=== PATIENT | male | born 1970 | race Caucasian/White ===

== ENCOUNTER 2019-04-02 06:08 | Inpatient (IN) | payer OTHER ==
[~2019-04-02] VITALS: Ht 180.3 cm; Wt 102.9 kg
--- NOTE | 2019-04-02 06:20 | NUR ---
PT ARRIVES BY AMBULANCE FOR ETOH INTOXICATION AND CHEST PAIN. PER PT, PT DRINKING 1/2 GALLON/DAY X 5 DAYS. EN ROUTE TO [facility] ED, IV ACCESS ESTABLISHED OBTAINED BY EMS. IV FLUIDS INITIATED. FSBS FOUND TO BE 158. PT REPORTS LAST DRINK 25 MINUTES AGO. PT VSS. PT IN GOWN IN [facility]. EKG DONE AT BS. AWAITING ERP AT THIS TIME. PT HAS CALL LIGHT WITHIN REACH.
[2019-04-02] MEDS ORDERED: PLEASE ENTER ALLERGIES MC SCH (07:00)
[2019-04-02] MEDS ORDERED: KETOROLAC 30 MG/1 ML IVPush ONE (07:00)
[2019-04-02] MEDS ORDERED: FAMOTIDINE 20 MG/2 ML IVPush ONE (07:00)
[2019-04-02] MEDS ORDERED: MAALOX/HYOSCYAMINE/LIDOCAINE 45 ML BTL PO ONE (07:00)
[2019-04-02] MEDS ORDERED: ONDANSETRON 2MG/ML, 2ML IVPush ONE (07:00)
--- NOTE | 2019-04-02 07:00 | NUR ---
RECIEVED REPORT FROM JASS CAMPOS
[2019-04-02 07:03] LABS: BASOPHILS # (AUTO) 0.03 x10^3/uL (0-0.1); BASOPHILS % (AUTO) 1 % (0-1); EOSINOPHILS # (AUTO) 0.07 x10^3/uL (0-0.4); EOSINOPHILS % (AUTO) 1 % (1-7); LYMPHOCYTES # (AUTO) 2.34 x10^3/uL (1-3.4); LYMPHOCYTES % (AUTO) 41 % (22-44); MD NO; MEAN CORPUSCULAR HEMOGLOBIN 30.4 pg (27.5-34.5); MEAN CORPUSCULAR HGB CONC 33.4 g/dL (33.2-36.2); MEAN PLATELET VOLUME 7.1 fL (7.4-10.4); MONOCYTES # (AUTO) 0.58 x10^3/uL (0.2-0.8); MONOCYTES % (AUTO) 10 % (2-9); NEUTROPHILS # (AUTO) 2.65 x10^3/uL (1.8-6.8); NEUTROPHILS % (AUTO) 47 % (42-75); PLATELET COUNT 194 x10^3/uL (130-400); RED BLOOD COUNT 5.63 x10^6/uL (4.38-5.82); RED CELL DISTRIBUTION WIDTH 14.6 % (9.4-14.8)
[2019-04-02] MEDS ORDERED: ONDANSETRON 2MG/ML, 2ML ONE (07:04)
[2019-04-02] MEDS ORDERED: MAALOX/HYOSCYAMINE/LIDOCAINE 45 ML BTL ONE (07:04)
[2019-04-02] MEDS ORDERED: KETOROLAC 30 MG/1 ML ONE (07:04)
[2019-04-02] MEDS ORDERED: FAMOTIDINE 20 MG/2 ML ONE (07:05)
[2019-04-02 07:12] LABS: INTERNATIONAL NORMALIZED RATIO 1.08 (0.93-1.1); PROTHROMBIN TIME 11.3 Seconds (9.6-11.5)
[2019-04-02 07:13] LABS: ALANINE AMINOTRANSFERASE 114 U/L (12-78); ALBUMIN 4.2 g/dL (3.4-5.0); ANION GAP 12 mmol/L (5-15); CALCIUM 8.3 mg/dL (8.5-10.1); CHLORIDE 99 mmol/L (98-107); CREATININE 0.93 mg/dL (0.7-1.3)
[2019-04-02 07:17] LABS: ALKALINE PHOSPHATASE 80 U/L (45-117); BILIRUBIN,TOTAL 0.6 mg/dL (0.2-1.0); TOTAL PROTEIN 8.2 g/dL (6.4-8.2); TROPONIN I < 0.015 ng/mL (0.000-0.045)
--- NOTE | 2019-04-02 07:17 | NUR ---
PT MEDICATED PER EMAR. PT CALM, A+OX4. BLANKET PROVIDED. PT ON LEAD GENERATOR.
[2019-04-02] MEDS ORDERED: MAGNESIUM SULFATE 1 GM/2 ML IVPush ONE (07:30)
[2019-04-02] MEDS ORDERED: POTASSIUM CHLORIDE 40 MEQ in SODIUM CHLORIDE 0.9% 500 ML IV ONE (07:30)
[2019-04-02] MEDS ORDERED: MAGNESIUM SULFATE 1 GM in SODIUM CHLORIDE 0.9% 50 ML IV ONE (07:30)
--- NOTE | 2019-04-02 07:38 | NUR ---
PT O2 SATS IN THE HIGH 80'S ON 2L. NASAL CANNULA INCREASED TO 4L AND O2 SATS INCREASED TO THE LOW 90'S.
--- NOTE | 2019-04-02 08:03 | NUR ---
pt to ct
[2019-04-02] MEDS ORDERED: OMNIPAQUE 350 MG/ML, 100ML BOTTLE ONE (08:18)
--- NOTE | 2019-04-02 08:57 | NUR ---
BEDSIDE REPORT FROM JASS JOSHI. ASSUMED CARE OF PATIENT AT THIS TIME.
[2019-04-02] MEDS ORDERED: FOLIC ACID 5 MG/ML IM ONE (09:00)
[2019-04-02] MEDS ORDERED: GUAIFENESIN/DM 200-20MG, 10ML UDC PO PRN (09:00)
[2019-04-02] MEDS ORDERED: NITROGLYCERIN 0.4 MG BOTTLE (25 TABS) SL PRN (09:00)
[2019-04-02] MEDS ORDERED: LORazepam 2 MG/ML, 1ML IV PRN (09:00)
[2019-04-02] MEDS ORDERED: LORazepam 1MG TABLET PO PRN ×4 (09:00)
[2019-04-02] MEDS ORDERED: DOCUSATE 100 MG CAPSULE PO PRN (09:00)
[2019-04-02] MEDS ORDERED: LIDODERM 5% PATCH TD PRN (09:00)
[2019-04-02] MEDS ORDERED: hydrALAzine 20 MG/ML, 1ML IVPush PRN (09:00)
[2019-04-02] MEDS ORDERED: PANTOPROZOLE 40MG TABLET PO SCH (09:00)
[2019-04-02] MEDS ORDERED: NITROGLYCERIN 0.4 MG/SPRAY SL PRN (09:00)
[2019-04-02] MEDS ORDERED: THIAMINE 200 MG in DEXTROSE 5% 50 ML IVPB ONE (09:00)
--- NOTE | 2019-04-02 09:05 | NUR ---
LAST DRINK 0500, 1/2 GALLON VODKA THROUGHOUT LAST NIGHT.
[2019-04-02 09:58] LABS: TROPONIN I < 0.015 ng/mL (0.000-0.045)
[2019-04-02] MEDS ORDERED: LORazepam 2 MG/ML, 1ML ONE ×2 (10:06→14:38)
[2019-04-02] MEDS: LORazepam 2 MG/ML, 1ML IV PRN ×4 (10:11→22:16)
--- NOTE | 2019-04-02 10:12 | NUR ---
MEDICATION REQUEST SENT TO PHARMACY, ATIVAN ADMINISTERED PER [facility] PROTOCOL, PATIENT SITTING IN GURNEY RESTING COMFORTABLY, NADN. AWAITING BED ASSIGNMENT. NO ADDITIONAL NEEDS AT THIS TIME.
[2019-04-02] MEDS: MULTIVITAMINS/MINERALS TABLET PO SCH (10:59)
--- NOTE | 2019-04-02 11:00 | NUR ---
MEDICATIONS SENT FROM PHARMACY AND ADMINISTERED PER MD ORDER, VS UPDATED IN CHART. PATIENT RESTING ON GURNEY, AWAITING BED ASSIGNMENT. TELE HOLD AT THIS TIME. PATIENT REPORTS FEELING BETTER AFTER ATIVAN ADMINISTRATION. NO ADDITIONAL NEEDS AT THIS TIME.
--- NOTE | 2019-04-02 11:04 | NUR ---
GI AT BEDSIDE.
--- NOTE | 2019-04-02 12:38 | NUR ---
Resting in [facility]. RR = 16. No other needs at this time.
--- NOTE | 2019-04-02 12:50 | NUR ---
CARDIAC DIET TRAY PROVIDED TO PATIENT.
[2019-04-02 13:00] LABS: HEMOGLOBIN A1C 5.8 % (4.2-6.3)
--- NOTE | 2019-04-02 13:36 | NUR ---
PATIENT SLEEPING IN [facility], VISIBLE CHEST RISE AND FALL, VS UPDATED IN CHART. NADN.
[2019-04-02] MEDS: POTASSIUM CHLORIDE 20 MEQ, MAGNESIUM SULFATE 2 GM, THIAMINE 200 MG, MVI ADULT 10 ML, FO... IV SCH ×2 (14:24→15:59)
[2019-04-02 14:40] LABS: TROPONIN I < 0.015 ng/mL (0.000-0.045)
--- NOTE | 2019-04-02 14:50 | NUR ---
LUNCH BREAK NOTE: REPORT GIVEN TO WILBER REGAN ON TELE. PT REMEDICATED PER [facility] PROTOCOL.
--- NOTE | 2019-04-02 15:11 | NUR ---
PATIENT BEING TRANSFERRED/ADMITTED TO HOSPITAL BED UPSTAIRS AT THIS TIME. AZEB.
[2019-04-02 15:25] VITALS: BP 128/77
[2019-04-02] MEDS: ONDANSETRON ODT 4 MG PO PRN ×2 (15:58→19:54)
[2019-04-02] MEDS: LORazepam 0.5MG TABLET PO PRN ×2 (15:59→18:10)
[2019-04-02] MEDS: OMEPRAZOLE 20 MG CAPSULE.DR PO SCH (15:59)
[2019-04-02] MEDS ORDERED: GABA300C10 PO (16:01)
[2019-04-02] MEDS ORDERED: MIRT30TA4 PO (16:01)
[2019-04-02] MEDS ORDERED: PRAZ2CAP2 PO (16:01)
[2019-04-02 19:05] VITALS: BP 136/95
[2019-04-02 20:57] LABS: AMPHETAMINE SCREEN, URINE Negative (Negative); BARBITURATE SCREEN, URINE Negative (Negative); BENZODIAZEPINE SCREEN, URINE Negative (Negative); CANNABINOID SCREEN, URINE Negative (Negative); COCAINE SCREEN, URINE Negative (Negative); METHADONE SCREEN, URINE Negative (Negative); OPIATE SCREEN, URINE Negative (Negative)
[2019-04-02 21:19] VITALS: BP 134/85
[2019-04-02] MEDS: GABAPENTIN 300 MG CAPSULE PO SCH (22:14)
[2019-04-02] MEDS: MIRTAZAPINE 30 MG TABLET PO SCH (22:15)
[2019-04-02] MEDS: PRAZOSIN 2 MG CAPSULE PO SCH (22:15)
[2019-04-02 23:04] VITALS: BP 128/83
[2019-04-03 01:08] VITALS: BP 122/85
[2019-04-03] MEDS: NS + 20MEQ KCL 1,000 ML IV SCH ×2 (01:08→11:46)
[2019-04-03 02:32] VITALS: BP 151/99
[2019-04-03] MEDS: LORazepam 2 MG/ML, 1ML IV PRN ×3 (02:34→22:17)
[2019-04-03 05:39] LABS: CHLORIDE 104 mmol/L (98-107)
[2019-04-03 05:47] LABS: ALANINE AMINOTRANSFERASE 82 U/L (12-78); ALBUMIN 3.5 g/dL (3.4-5.0); ALKALINE PHOSPHATASE 58 U/L (45-117); BILIRUBIN,TOTAL 1.1 mg/dL (0.2-1.0); CALCIUM 7.9 mg/dL (8.5-10.1); CHOL/HDL RATIO 2.1; CHOLESTEROL, TOTAL 144 mg/dL (140-239); CREATININE 0.93 mg/dL (0.7-1.3); HDL CHOL % 47 % (26-37); HDL CHOLESTEROL (DIRECT) 68 mg/dL (40-60); LDL CHOLESTEROL,CALCULATED 68 mg/dL (54-169); TOTAL PROTEIN 6.6 g/dL (6.4-8.2); TRIGLYCERIDES 41 mg/dL (50-200); VLDL CHOLESTEROL 8 mg/dL (0-25)
[2019-04-03 06:21] LABS: ANION GAP 8 mmol/L (5-15)
[2019-04-03] MEDS: OMEPRAZOLE 20 MG CAPSULE.DR PO SCH ×2 (06:21→16:57)
[2019-04-03 07:22] VITALS: BP 142/81
[2019-04-03] MEDS: MULTIVITAMINS/MINERALS TABLET PO SCH (08:51)
[2019-04-03] MEDS: GABAPENTIN 300 MG CAPSULE PO SCH ×2 (08:51→20:15)
[2019-04-03 09:37] LABS: BASOPHILS # (AUTO) 0.02 x10^3/uL (0-0.1); BASOPHILS % (AUTO) 1 % (0-1); EOSINOPHILS # (AUTO) 0.07 x10^3/uL (0-0.4); EOSINOPHILS % (AUTO) 2 % (1-7); LYMPHOCYTES # (AUTO) 1.31 x10^3/uL (1-3.4); LYMPHOCYTES % (AUTO) 28 % (22-44); MD NO; MEAN CORPUSCULAR HEMOGLOBIN 29.5 pg (27.5-34.5); MEAN CORPUSCULAR HGB CONC 32.6 g/dL (33.2-36.2); MEAN CORPUSCULAR VOLUME 90.5 fL (81-97); MEAN PLATELET VOLUME 7.7 fL (7.4-10.4); MONOCYTES # (AUTO) 0.48 x10^3/uL (0.2-0.8); MONOCYTES % (AUTO) 10 % (2-9); NEUTROPHILS # (AUTO) 2.85 x10^3/uL (1.8-6.8); NEUTROPHILS % (AUTO) 60 % (42-75); PLATELET COUNT 152 x10^3/uL (130-400); RED CELL DISTRIBUTION WIDTH 14.6 % (9.4-14.8)
[2019-04-03 13:40] VITALS: BP 130/78
[2019-04-03] MEDS ORDERED: POTASSIUM CHLORIDE 20 MEQ, MAGNESIUM SULFATE 2 GM, THIAMINE 200 MG, MVI ADULT 10 ML, FO... IV SCH (16:30)
[2019-04-03 18:40] VITALS: BP 143/87
[2019-04-03] MEDS: MIRTAZAPINE 30 MG TABLET PO SCH (20:15)
[2019-04-03] MEDS: PRAZOSIN 2 MG CAPSULE PO SCH (20:15)
[2019-04-03] MEDS ORDERED: NICOTINE 21 MG/24 HR PATCH.TD24 TD SCH (21:30)
[2019-04-03] MEDS ORDERED: DIAZEPAM 5 MG/ML, 2ML IV ONE (23:00)
[2019-04-03 23:30] VITALS: BP 153/52
[2019-04-04] MEDS: LORazepam 2 MG/ML, 1ML IV PRN ×7 (00:06→10:40)
[2019-04-04 00:23] VITALS: BP 145/85
[2019-04-04 01:50] VITALS: BP 125/79
[2019-04-04] MEDS: NS + 20MEQ KCL 1,000 ML IV SCH (03:20)
[2019-04-04] MEDS: OMEPRAZOLE 20 MG CAPSULE.DR PO SCH (05:29)
[2019-04-04 05:43] LABS: ALANINE AMINOTRANSFERASE 69 U/L (12-78); ALBUMIN 3.5 g/dL (3.4-5.0); ANION GAP 7 mmol/L (5-15); CALCIUM 8.2 mg/dL (8.5-10.1); CHLORIDE 105 mmol/L (98-107); CREATININE 0.96 mg/dL (0.7-1.3)
[2019-04-04 05:45] LABS: ALKALINE PHOSPHATASE 76 U/L (45-117); BILIRUBIN,TOTAL 0.9 mg/dL (0.2-1.0); TOTAL PROTEIN 6.9 g/dL (6.4-8.2)
[2019-04-04 06:36] VITALS: BP 131/81
[2019-04-04] MEDS: MULTIVITAMINS/MINERALS TABLET PO SCH (08:33)
[2019-04-04] MEDS: GABAPENTIN 300 MG CAPSULE PO SCH (08:33)
[2019-04-04] MEDS ORDERED: CHLORDIAZEPOXIDE 25 MG CAPSULE PO PRN (09:30)
[2019-04-04] MEDS ORDERED: CHLORDIAZEPOXIDE 25 MG CAPSULE PO SCH (16:00)
== END 2019-04-04 12:20 | disposition left against medical advice (07) | DRG 377 ==
LOC: ED 06:52 → EDIP 08:09 → 5SO 15:16
PROVIDERS: ADMIT Internal Medicine; ATTEND Internal Medicine
DX: K29.21 Alcoholic gastritis with bleeding (principal); J96.02 Acute respiratory failure with hypercapnia; J96.01 Acute respiratory failure with hypoxia; Z53.21 Procedure and treatment not carried out due to patient leaving prior to being seen by health care provider; E87.6 Hypokalemia; F10.229 Alcohol dependence with intoxication, unspecified; F43.10 Post-traumatic stress disorder, unspecified; Y90.8 Blood alcohol level of 240 mg/100 ml or more
CPT/HCPCS: 36415; 36600; 99285; J3490; J7042; 71045; 71275; 80053; 80061; 80307; 82803; 82962; 83036; 83690; 83735; 84132; 84484; 85025; 85610; 85730; 93005; 96365; 96366; 96367; 96372; 96375; G0378; J1885; J2405; J3360; J3411; J3475; J3480; Q0162; Q9967; J2060; J7040